=== PATIENT | female | born 1985 | race Caucasian/White ===

== ENCOUNTER 2024-10-21 09:48 | Inpatient (IN) | payer SELFPAY ==
[2024-10-21] VITALS (54 sets, daily range): BP systolic 125–168; BP diastolic 56–91; PULSE 8–224; RESP 16–20; TEMP 36.4–37.4; O2SAT 79–100; BMI 27.1
[2024-10-21] MEDS: Lactated Ringers 1,000 ML 50 ML IV (10:15)
[2024-10-21 10:36] LABS: Absolute Lymphocyte Count 1.54 X10^3/uL (0.83-4.51); Absolute Neutrophil Count 7.4 X10^3/uL (2.0-7.7); Basophil# 0.02 X10^3/uL; Basophil% 0.2 % (0-1); Eosinophil# 0.01 X10^3/uL; Eosinophils% 0.1 % (0-5); Hematocrit 40.4 % (37-47); Hemoglobin 13.9 g/dL (12.0-15.0); Lymphocyte # 1.54 X10^3/ul (0.83-4.51); Lymphocyte % 16.3 % (19-41); Mean Corp Hgb Conc 34.4 g/dL (32-36); Mean Corpuscular Hgb 31.7 pg (27.0-32.0); Mean Platelet Vol. 10.4 fl (6.2-12.0); Monocyte# 0.42 X10^3/uL; Monocyte% 4.5 % (0-10); NRBC Flagged by Analyzer 0 % (0-5); Neutrophil # 7.39 X10^3/uL (2.7-7.7); Neutrophil % 78.4 % (47-70); Platelet Count 238 K/mm3 (150-450); RBC Distribution Width CV 12.5 % (11.6-14.6); RBC Distribution Width SD 42.3 fl (35.1-43.9); Red Blood Count 4.39 M/mm3 (4.2-5.4); White Blood Count 9.4 K/mm3 (4.4-11.0)
[2024-10-21] MEDS: Oxytocin 15 Units/NS 250ml 15 UNITS/250 ML IV.SOLN 2 UNITS IV (11:28)
[2024-10-21 11:52] LABS: Syphilis Antibodies Non-reactive
--- NOTE | 2024-10-21 12:27 | PCM.PN.OB ---
Subjective Subjective CAT I Contractions q 5 /-1 Objective Data Objective Data Vital Signs: Vital Signs Temp Pulse Resp BP 97.6 F L 69 16 138/79 H 10/21/24 10:17 10/21/24 12:22 10/21/24 10:17 10/21/24 12:22 Weight: 69.5 kg Body Mass Index (BMI) 27.1 Intake & Output: Intake and Output for Last 24 Hours 10/19/24 10/20/24 10/21/24 23:59 23:59 23:59 Intake Total 1.97 / 1.97 Balance 1.97 / 1.97 Lab / Micro Data 10/21/24 10:25 Labs: Laboratory Results - last 24 hr 10/21/24 10:25: WBC 9.4, RBC 4.39, Hgb 13.9, Hct 40.4, MCV 92.0, MCH 31.7, MCHC 34.4, RDW Std Deviation 42.3, RDW Coeff of Janine 12.5, Plt Count 238, MPV 10.4, Immature Gran % (Auto) 0.500, Neut % (Auto) 78.4 H, Lymph % (Auto) 16.3 L, [place] % (Auto) 4.5, Eos % (Auto) 0.1, Baso % (Auto) 0.2, Absolute Neuts (auto) 7.4, Absolute Lymphs (auto) 1.54, Nucleated RBC % 0, Syphilis Total Ab Non-reactive, Blood Type O NEGATIVE, Antibody Screen NEGATIVE NST FHR Rate Baby A Baseline: 125 Variability:: Moderate Accelerations:: 15 x 15 Decelerations:: None NST Reactive:: Yes FHR Category:: Category I Uterine Activity:: q 5 Assessment & Plan (1) SROM (spontaneous rupture of membranes): (2) 38 weeks gestation of : PLAN: Plan Epidural prn nitrous prn pit prn
--- NOTE | 2024-10-21 12:42 | PCM.HP.OB ---
HPI - General General Date of Admission: 10/21/24 Date of Service: 10/21/24 Chief Complaint: SROM HPI Narrative DIONICIO MERRITT, is a 39 F who presents SROM at 11pm the night before. 5 cm on admission. Negative GBS. Previous vaginal delivery x 5 at home Maternal Data Information Final HOLLY: 10/30/24 Gestational age: 38+5 PFSH PFSH Medical History hemorrhage Superficial varicosities Home Medications ?Medication ?Instructions ?Recorded ?Last Taken ?Type aspirin 81 mg chewable tablet 1 tab PO DAILY 10/21/24 10/20/24 08:00 History (Susannah Chewable Low Dose Aspirin) 1 TAB vit no.95-ferrous 1 tab PO DAILY 10/21/24 10/20/24 08:00 History fumarate 28 mg-folic acid 800 mcg 1 TAB tablet () Allergy/AdvReac Type Severity Reaction Status Date / Time No Known Allergies Allergy Verified 10/21/24 09:50 Social History Smoking Status: Never smoker History 6 Elective abortions Hx Para 5 Spontaneous abortions Hx # Term Pregnancies Ectopic pregnancies Hx # Pregnancies Multiple births # of living children NST FHR Rate Baby A Baseline: 125 Variability:: Moderate Accelerations:: 15 x 15 Decelerations:: None NST Reactive:: Yes FHR Category:: Category I Uterine Activity:: q 3-5 ROS Constitutional Constitutional: Denies fatigue, fever(s) or malaise Eyes Eyes: Denies change in vision ENT HEENT: Denies dizziness or headache(s) Cardiovascular Cardiovascular: Denies chest pain, dyspnea or lightheadedness Respiratory/Chest Respiratory/Chest: Denies cough or dyspnea Gastrointestinal Gastrointestinal: Denies change in bowel habits Genitourinary Genitourinary: Denies burning urination or genital lesions Integumentary Integumentary: Denies rash Neurologic Neurologic: Denies confusion, dizziness, headache(s), numbness or weakness Vital Signs Vital Signs Vital Signs: 10/21/24 10:17 10/21/24 10:17 10/21/24 10:17 Temperature Temperature Source Temporal Pulse Rate 65 Respiratory Rate Blood Pressure 144/73 H BP Systolic 144 BP Diastolic 73 Pulse Ox 10/21/24 10:17 10/21/24 10:17 10/21/24 11:28 Temperature 97.6 F L Temperature Source Pulse Rate Respiratory Rate 16 Blood Pressure 138/83 H BP Systolic 138 BP Diastolic 83 Pulse Ox 10/21/24 11:28 10/21/24 12:22 10/21/24 12:22 Temperature Temperature Source Pulse Rate 71 69 Respiratory Rate Blood Pressure 138/79 H BP Systolic 138 BP Diastolic 79 Pulse Ox 10/21/24 12:22 10/21/24 12:22 10/21/24 12:22 Temperature Temperature Source Temporal Pulse Rate Respiratory Rate 16 Blood Pressure BP Systolic BP Diastolic Pulse Ox 99 10/21/24 12:22 Temperature 98.2 F Temperature Source Pulse Rate Respiratory Rate Blood Pressure BP Systolic BP Diastolic Pulse Ox Weight Weight: 69.5 kg Body Mass Index (BMI) 27.1 Physical Exam Const alert and no apparent distress General Appearance: cooperative HEENT normocephalic Resp normal respiratory effort GI soft to palpation GI Narrative: gravid, nontender, appropriate for gestational age Extremity no calf tenderness General Extremity: edema Skin no wounds Rashes: No rashes noted Psych activity/motor behavior normal Labs Labs Labs: Blood Type O NEGATIVE Antibody Screen NEGATIVE Hct 40.4 % (37-47) Hgb 13.9 g/dL (12.0-15.0) Syphilis Total Ab Non-reactive Assessment & Plan (1) SROM (spontaneous rupture of membranes): (2) 38 weeks gestation of : PLAN: Plan Augment prn
[2024-10-21] MEDS: Lactated Ringers 1,000 ML 999 ML IV (14:16)
[2024-10-21] MEDS: fentaNYL-bupivacaine (epidural) 100 ML BAG EPIDURAL (14:59)
--- NOTE | 2024-10-21 15:45 | OB.VAGDELI_ITS ---
Assessment & Plan (1) (spontaneous vaginal delivery): Maternal Data Information Final HOLLY: 10/30/24 Gestational age: 38+5 Vaginal Delivery Maternal Presentation Maternal Presentation: Spontaneous Rupture of Membranes Maternal Presentation: AROM at home 11pm 10/20/24 Type of Induction: Pitocin Vaginal Delivery Information Procedure Performed: Spontaneous Vaginal Delivery Surgeon/Practitioner: Monserrat Fox Date of Procedure: 10/21/24 Pre-Procedure Diagnosis: SROM Post-Procedure Diagnosis: Type of anesthesia: Epidural Estimated Blood Loss: 100 cc Time of Delivery: 15:34 Findings Description of procedure: Presented with SROM. 5 cm on admission. Progressed to complete over a few hours. Once complete could not push through the pain. After an hour of attempting to push patient opted for an epidural. After epidural placement patient pushed approximately 3 contractions and delivered the vertex OA. The anterior and posterior shoulder followed quickly. The cord was doubly clamped and cut. The placenta delivered with gentle traction. A small 1st degree was repair dwith2-0 Vicryl. All lap and needle counts were correct. Presentation: Vertex and TIA Amniotic Membrane Rupture Type: Spontaneous Amniotic Fluid Description: Clear Placental Delivery Description: Spontaneous Placenta Disposition: [facility] Specimen collected: Yes Description of specimen(s) removed: cord blood Cord Vessel Description: 3 Vessels Cord Entanglement: None A Gender: Male (1 minute): 7 (5 minute): 9 Delayed Cord Clamping: Yes Import/Export Administrator network firewall engineer: No Post Vaginal Deli Medications given after delivery: IV Pitocin Episiotomy Description: None Laceration: Midline and 1st degree Complication Complications: No
[2024-10-21] MEDS: Oxytocin 15 Units/NS 250ml 15 UNITS/250 ML IV.SOLN 83 UNITS IV (16:15)
[2024-10-21] MEDS: 0.9% Saline Lock 10 ML Syringe IV (19:30)
--- NOTE | 2024-10-21 20:37 | PCM.PN.OB ---
Subjective Subjective Asked to evaluate varicose veins on right leg. Sore and mildly larger since delivery. Did not wear compression socks today. Objective Data Objective Data Vital Signs: Vital Signs Temp Pulse Resp BP Pulse Ox 97.9 F 68 18 134/73 H 98 10/21/24 18:00 10/21/24 18:00 10/21/24 18:00 10/21/24 18:00 10/21/24 18:05 Weight: 69.5 kg Body Mass Index (BMI) 27.1 Intake & Output: Intake and Output for Last 24 Hours 10/19/24 10/20/24 10/21/24 23:59 23:59 23:59 Intake Total 2094.76 / 2094.76 Output Total 100 / 100 Balance / Lab / Micro Data 10/21/24 10:25 Labs: Laboratory Results - last 24 hr 10/21/24 10:25: WBC 9.4, RBC 4.39, Hgb 13.9, Hct 40.4, MCV 92.0, MCH 31.7, MCHC 34.4, RDW Std Deviation 42.3, RDW Coeff of Janine 12.5, Plt Count 238, MPV 10.4, Immature Gran % (Auto) 0.500, Neut % (Auto) 78.4 H, Lymph % (Auto) 16.3 L, [place] % (Auto) 4.5, Eos % (Auto) 0.1, Baso % (Auto) 0.2, Absolute Neuts (auto) 7.4, Absolute Lymphs (auto) 1.54, Nucleated RBC % 0, Syphilis Total Ab Non-reactive, Blood Type O NEGATIVE, Antibody Screen NEGATIVE Micro: Microbiology 10/21/24 10:25 Urine, Clean Catch Chlamydia/Neisseria (PCR) - Final Physical Exam Const alert and oriented x3 General Appearance: cooperative and comfortable Extremity full ROM and no calf tenderness Right Lower Extremity: lower leg other (soft varicose veins on the lateral aspect. Tender but not inflamed. Superficial) Assessment & Plan (1) (spontaneous vaginal delivery): (2) Superficial varicosities: PLAN: Plan may wear her own compression socks
[2024-10-22] VITALS: BP 130/82; PULSE 57; RESP 16; TEMP 36.4; O2SAT 97
[2024-10-22 04:00] VITALS: BP 142/78; PULSE 86; RESP 16; TEMP 36.3; O2SAT 97
[2024-10-22] MEDS: Acetaminophen 500 MG Tablet 1000 MG PO (05:53)
--- NOTE | 2024-10-22 08:34 | VDLE_ITS ---
Reason For Study: Pain RIGHT LEFT GSV is normal. CFV is compressible, spontaneous, phasic, CFV is compressible, spontaneous, phasic, competent, and demonstrates normal competent and demonstrates normal augmentation. augmentation. FV is compressible, spontaneous, phasic, competent and demonstrates normal augmentation. POP V is compressible, spontaneous, phasic, competent and demonstrates normal augmentation. T/P Trunk is compressible. PTV is compressible. RT PerV is compressible. Thrombus filled varicose veins noted from lateral prox thigh to prox calf. Procedure This is a venous duplex using B-mode, color flow and spectral Doppler. Exam performed portable in patient room. A preliminary report was called and/or faxed to [facility]. VL/Venous Duplex US, Unilateral Interpretation Summary Deep veins of the right lower extremity are patent and compressible segmentally . There is no evidence of right lower extremity deep vein thrombosis. The right great sapheno us vein appears patent and compressible segmentally. Superficial vein thrombus noted in lateral thigh and calf varicosities. Ordering Physician: Monserrat Fox Referring Physician: Monserrat Fox Performed By: Carie Farnsworth RVT and Student
--- NOTE | 2024-10-22 08:49 | PCM.PN.CNM ---
Subjective Subjective Patient seen at bedside. Ambulating and voiding without difficulty. independently. Objective Data Objective Data Vital Signs: Vital Signs Temp Pulse Resp BP Pulse Ox O2 Del Method 97.3 F L 86 16 142/78 H 97 Room Air 10/22/24 04:00 10/22/24 04:00 10/22/24 04:00 10/22/24 04:00 10/22/24 04:00 10/22/24 04:00 Oxygen Delivery Method Room Air Weight: 153 lb 3.54 oz Body Mass Index (BMI) 27.1 Intake & Output: Intake and Output for Last 24 Hours 10/20/24 10/21/24 10/22/24 23:59 23:59 23:59 Intake Total 2095.76 / 2095.76 Output Total 600 / 600 Balance 1495.76 / 1495.76 Lab / Micro Data Attestation: I reviewed the patient's lab results. 10/21/24 10:25 Labs: Laboratory Results - last 24 hr 10/21/24 10:25: WBC 9.4, RBC 4.39, Hgb 13.9, Hct 40.4, MCV 92.0, MCH 31.7, MCHC 34.4, RDW Std Deviation 42.3, RDW Coeff of Janine 12.5, Plt Count 238, MPV 10.4, Immature Gran % (Auto) 0.500, Neut % (Auto) 78.4 H, Lymph % (Auto) 16.3 L, [place] % (Auto) 4.5, Eos % (Auto) 0.1, Baso % (Auto) 0.2, Absolute Neuts (auto) 7.4, Absolute Lymphs (auto) 1.54, Nucleated RBC % 0, Syphilis Total Ab Non-reactive, Blood Type O NEGATIVE, Antibody Screen NEGATIVE Micro: Microbiology 10/21/24 10:25 Urine, Clean Catch Chlamydia/Neisseria (PCR) - Final ROS Eyes Eyes: Denies blurry vision, change in vision or spots in vision ENT HEENT: Denies dizziness or headache(s) Cardiovascular Cardiovascular: Denies abdominal pain, chest pain or dyspnea Respiratory/Chest Respiratory/Chest: Denies cough, dyspnea, shortness of breath at rest or shortness of breath with exertion Gastrointestinal Gastrointestinal: Denies abdominal pain, diarrhea or vomiting Genitourinary Genitourinary: Denies change in urinary stream, difficulty urinating or dysuria Musculoskeletal Musculoskeletal: Reports none Integumentary Integumentary: Denies rash Neurologic Neurologic: Denies dizziness, headache(s), memory loss or weakness Physical Exam Const alert and no apparent distress General Appearance: cooperative and comfortable Exam Limitations: no limitations HEENT normocephalic Eyes General Eye: normal appearance of both eyes Neck full ROM General: normal visual inspection Chest Chest: symmetrical chest wall rise Resp normal respiratory effort and normal air movement Effort and Inspection: symmetric chest movement Auscultation: clear to auscultation bilaterally Cardio regular rate and regular rhythm GI normal to inspection, nondistended, normoactive bowel sounds Back/Spine normal ROM Extremity full ROM and no calf tenderness General Extremity: normal exam except as noted Skin no rashes or lesions noted Neuro oriented x3 Speech: speech normal Psych mental status grossly normal Thought Process: normal thought process Assessment & Plan (1) Superficial varicosities: (2) (spontaneous vaginal delivery): (3) Care and examination of lactating mother: (4) Elevated blood pressure reading: PLAN: Plan BP 130-140's/ 60-80's (elevated from patient's normal since delivery) Denies any headache, vision changes, SOB, CP Venous Doppler ordered for pain in leg from varicose vein Anticipate discharge home tomorrow if blood pressure remains stable
[2024-10-22 09:00] VITALS: BP 125/68; PULSE 58; RESP 15; TEMP 36.2; O2SAT 100
[2024-10-22 11:35] VITALS: BP 131/84; PULSE 56; RESP 16; TEMP 36.4; O2SAT 99
[2024-10-22] MEDS: Ibuprofen 600 MG Tablet PO (14:15)
[2024-10-22 15:41] VITALS: BP 142/87; PULSE 59; RESP 14; TEMP 36.8; O2SAT 98
[2024-10-22 20:00] VITALS: BP 120/80; PULSE 60; RESP 18; TEMP 36.6; O2SAT 99
[2024-10-23 02:00] VITALS: BP 141/85; PULSE 58; RESP 16; TEMP 36.4; O2SAT 98
--- NOTE | 2024-10-23 06:43 | PCM.DC.SUM ---
Providers Date of Admission: 10/21/24 Reason For Visit: VAGINAL DELIVERY Diagnosis Discharge Diagnosis (1) Superficial varicosities: Status: Acute Code(s): I83.90 - Asymptomatic varicose veins of unspecified lower extremity (2) (spontaneous vaginal delivery): Status: Acute Code(s): O80 - Encounter for full-term uncomplicated delivery (3) Care and examination of lactating mother: Status: Acute Code(s): Z39.1 - Encounter for care and examination of lactating mother (4) Elevated blood pressure reading: Status: Acute Code(s): R03.0 - Elevated blood-pressure reading, without diagnosis of hypertension Plan BP 130-140's/ 60-80's Denies any headache, vision changes, SOB, CP Venous Doppler yesterday was negative D/C home with follow up in office Medications at Discharge Home Medications vit no.95-ferrous fumarate 28 mg-folic acid 800 mcg tablet () 1 tab PO DAILY 10/21/24 acetaminophen 500 mg tablet 1,000 mg (2 x 500 mg) PO Q6H PRN PRN Pain 1-10 Or Fever #0 tabs 10/23/24 ibuprofen 600 mg tablet 600 mg PO Q6H PRN PRN Pain Score 1-10 #0 tabs 10/23/24 Hospital Course Operations None Summary of Care Provided Minutes Spent on Discharge: 15 Physical Exam Narrative Patient seen at bedside. Denies any headache, vision changes, SOB, CP or RUQ pain. independently. Desires discharge home today. Const alert and no apparent distress General Appearance: cooperative and comfortable Exam Limitations: no limitations HEENT normocephalic Eyes General Eye: normal appearance of both eyes Neck full ROM General: normal visual inspection Chest Chest: symmetrical chest wall rise Resp normal respiratory effort and normal air movement Effort and Inspection: symmetric chest movement Auscultation: clear to auscultation bilaterally Cardio regular rate and regular rhythm GI normal to inspection, nondistended, normoactive bowel sounds Back/Spine normal ROM Extremity full ROM and no calf tenderness General Extremity: normal exam except as noted Skin no rashes or lesions noted Neuro oriented x3 Speech: speech normal Psych mental status grossly normal Thought Process: normal thought process Weight / BMI Weight Weight: 153 lb 3.54 oz Body Mass Index (BMI) 27.1 ABG / Lab / Microbiology Data 10/21/24 10:25 Microbiology: Microbiology 10/21/24 10:25 Urine, Clean Catch Chlamydia/Neisseria (PCR) - Final Radiography Diagnostic Testing: Radiology Impression Venous Doppler Study 10/22/24 08:34 Interpretation Summary Deep veins of the right lower extremity are patent and compressible segmentally. There is no evidence of right lower extremity deep vein thrombosis. The right great saphenous vein appears patent and compressible segmentally. Superficial vein thrombus noted in lateral thigh and calf varicosities. Ordering Physician: Monserrat Fox Referring Physician: Monserrat Fox Performed By: Carie Farnsworth RVT and Student D/C Instructions Discharge Diet: No restrictions Discharge Activity: Return to Normal Activity May resume sexual activity in: 6-8 weeks Weight Bearing Status: Weight bearing as tolerated Call your doctor if you observe: Fever of 101 or Higher, Inability to urinate, Using more than 1 pad per hour, Shortness of breath, Dizziness, Swelling in the ankles, Chest pain, Increased palpitations (irregular heartbeat), Calf discomfort and Uncontrolled pain DC O2, CPAP, BIPAP Needs Home O2 Discharge instructions: No Please Follow Up With: [facility] When: 2 weeks for post Meaningful Use Info Meaningful Use Meaningful Use Diagnoses (Choose all that apply): None applicable Ischemic Stroke Statin Dosing Therapy Reference: STATIN DOSE THERAPY REFERENCE: * Patients > 75 years receive moderate or high dose statin therapy. * Patients 75 years or YOUNGER should receive HIGH intensity statin dose unless contraindicated. You will be required to document reason for non-treatment if statin daily dose does not meet guidelines. HIGH DOSE STATIN THERAPY DAILY Atorvastatin > than or = to 40 mg Rosuvastatin > than or = to 20 mg Amlodipine + Atorvastatin > than or = to 2.5/40 mg Ezetimibe + Simvastatin 10/80 mg Simvastatin 80mg Discharge Plan Admission Admit Date/Time: 10/21/24 09:48 Primary Reason for Your Visit: Labor and Delivery Attending Provider: Monserrat Fox Discharge Orders/Prescriptions Prescriptions: New acetaminophen 500 mg Tablet 1,000 mg PO Q6H PRN PRN (Reason: Pain 1-10 Or Fever) Qty: 0 0RF ibuprofen 600 mg Tablet 600 mg PO Q6H PRN PRN (Reason: Pain Score 1-10) Qty: 0 0RF Continued PNV cmb#95-ferrous fumarate-FA [] 28 mg iron- 800 mcg tablet 1 tab PO DAILY Discontinued aspirin [Susannah Chewable Aspirin] 81 mg tablet,chewable 1 tab PO DAILY Disposition Disposition (needs filled in before D/C Order can be placed): Home, Self Care
[2024-10-23 08:32] VITALS: BP 137/80; PULSE 63; RESP 16; TEMP 36.6; O2SAT 97
--- NOTE | 2024-10-23 10:06 | CASEMGMT ---
Social Work Brief Assessment - Labor and Delivery Unit Patient Address:[address] [place] [address] [place] [address] Phone number: [phone] Date and Time of Referral:? 10/22/24948 Referred By: Dr. Fox Date and time of intervention:? 10/23/24929 Reason for Referral:?? pt lost her 12 year old last year due to illness Informant:?? Medical record and mother of baby (MOB) History:? Sw completed chart review and acknowledges social work consult due to parents losing their 12 year old child last year. Sw presented to bedside and introduced self to mother of baby (MOB- Court) and father of baby (FOB- Deng). Sw explained reason for sw involvement and completed psychosocial assessment. Also present were parents two daughters, MOB stated it was okay to go over questions with their older children present. Parents have been together for 15 years after meeting through christianity and are . baby is 6th child for parents together. No concerns, baby is named Ruddy. Parents report that their housing is safe and secure, they have reliable transportation (local combination truck driver) and have all necessary baby supplies they need (car seat, safe sleep space, clothes, diapers and wipes). MOB states that she does not have any mental health diagnoses, and although their family was extremely sad at the loss of their 12 year old they have accepted that it is God's plan and have appropriately grieved their loss. MOB states that she is feeling well so far post and is not worried about experiencing any baby blues or mood or anxiety disorders. FOB states that if MOB were to struggle he would be able to recognize that. is connected to Dr. Tavares for pediatrics. Assessment:? MOB and baby admitted following labor and delivery. MOB and FOB quiet and reserved during completion of psychosocial assessment. Their older daughter observed holding appropriately and lovingly. MOB answered questions asked by sw but did not elaborate. FOB sat on couch and would answer questions when they were directly asked of him. FOB talked about their family farm. Plan:??MOB and baby to be discharged when medically ready. ? Parents were provided literature on: shaken baby prevention, Help Me Grow, ABCs of safe sleep, list of [facility] resources and signs and symptoms of baby blues and mood and anxiety symptoms to be mindful of during this period. No further needs requested or indicated. Nadeen Campbell, NURSE AIDE EVALUATOR, HIGH RISK CASE MANAGER
== END 2024-10-23 09:50 | disposition home or self-care (01) | DRG 806 ==
LOC: WPOUT 09:58 → WP 09:59
PROVIDERS: Admitting Provider Obstetrics & Gynecology; Referring Provider Obstetrics & Gynecology; Visit Provider Obstetrics & Gynecology
DX: O26.893 Other specified pregnancy related conditions, third trimester (principal); Z37.0 Single live birth; I82.811 Embolism and thrombosis of superficial veins of right lower extremity; R03.0 Elevated blood-pressure reading, without diagnosis of hypertension; O22.23 Superficial thrombophlebitis in pregnancy, third trimester; Z79.82 Long term (current) use of aspirin; Z3A.38 38 weeks gestation of pregnancy; O70.0 First degree perineal laceration during delivery
CPT/HCPCS: 59025; 59050; 85025; 86780; 86850; 86900; 86901; 87491; 87591; 93971; 99221; A4216; G0378